=== PATIENT | male | born 1970 | race Caucasian/White ===

== ENCOUNTER 2019-04-03 12:42 | Emergency (ER) | payer BC ==
[~2019-04-03] VITALS: Ht 172.7 cm; Wt 105.0 kg
[2019-04-03 12:47] VITALS: BP 145/87; PULSE 96; RESP 18; Ht 172.7 cm; Wt 105.0 kg
--- NOTE | 2019-04-03 12:56 | EN ---
Date/Time of Note Date/Time of Note DATE: 04/03/19 TIME: 12:54 ER Progress Note 48-year-old male, right-handed, presents the emergency left elbow pain after sustaining a ground-level fall that occurred yesterday, landing on the left side of his body. Patient evaluated in the ED 3, order for x-rays and a sling were placed, patient okay to be seen in the ED 2. DAINA COTTO MD Apr 03, 2019 12:56
[2019-04-03] MEDS ORDERED: KETOROLAC 30 MG INJ IM STA (13:19)
[2019-04-03] MEDS ORDERED: HYDROCODONE/APAP (5/325) TAB PO ONE (14:00)
[2019-04-03] MEDS ORDERED: IBUP-1542 PO (14:31)
--- NOTE | 2019-04-03 14:35 | ERD ---
ER Documentation Chief Complaint Chief Complaint left arm s/p trip and fall yesterday, no ko HPI Patient is a 48-year-old male, [id number], presents to the ER for concerns of left elbow pain after a trip and fall injury. Patient states injury occurred yesterday when he tripped outside. Patient landed on left elbow. Patient is right-hand dominant. ROS All systems reviewed and are negative except as per history of present illness. Medications Home Meds Active Scripts Ibuprofen* (Motrin*) 600 Mg Tab, 600 MG PO Q6, #30 TAB Prov:NICOLE ROSE PA-C 04/03/19 Allergies Allergies: Coded Allergies: No Known Allergy (Unverified , 04/03/19) PMhx/Soc Medical and Surgical Hx: pt denies Medical Hx, pt denies Surgical Hx Hx Alcohol Use: Yes (social) Hx Substance Use: No Hx Tobacco Use: Yes Smoking Status: Current every day smoker FmHx Family History: No diabetes Physical Exam Vitals Vital Signs Date Temp Pulse Resp B/P (MAP) Pulse Ox O2 O2 Flow FiO2 Time Delivery Rate 04/03/19 97.4 96 18 145/87 98 12:47 (106) Physical Exam GENERAL: Well-developed, well-nourished male. Appears in no acute distress. HEAD: Normocephalic, atraumatic. EYES: Pupils are equally reactive bilaterally. EOMs grossly intact. No conjunctival erythema. NECK: Supple. No meningismus. Normal range of motion of the neck. LUNG: Clear to auscultation bilaterally. No rhonchi, wheezing, rales or coarse breath sounds. HEART: Regular rate and rhythm. No murmurs, rubs or gallops. EXTREMITIES: Equal pulses bilaterally. No peripheral clubbing, cyanosis or edema. No unilateral leg swelling. NEUROLOGIC: Alert and oriented. Moving all four extremities without any difficulty. Normal speech. Steady gait. SKIN: Normal color. Warm and dry. No rashes or lesions. LUE: No deformity, erythema, ecchymosis. Swelling noted throughout the elbow joint. Decreased range of motion secondary to pain. Tender to palpation over the radial head. Sensation intact to light touch. Neurovascularly intact. (Able to give thumbs up, make an ok sign, cross digits 2 and 3, thumb to pinky opposition. 2+ RP.) No snuffbox tenderness. Results 24 hrs Current Medications Medications Dose Sig/Mayra Start Time Status Last (Trade) Ordered Route PRN Stop Time Admin Dose Reason Admin Ketorolac 30 mg ONCE STAT 04/03/19 DC 04/03/19 Tromethamine IM 13:19 13:27 (Toradol) 04/03/19 13:20 1 tab ONCE ONCE 04/03/19 DC 04/03/19 Acetaminophen PO 14:00 13:59 / 04/03/19 14:01 Hydrocodone Bitart (Orion (5/325)) Procedures/MDM ED COURSE: The patient was stable throughout ED course. I kept the patient and/or family informed of laboratory and diagnostic imaging results throughout the ED course. \ DIAGNOSTIC IMAGING: Read by radiologist. Patient: SIMONE ZAVALA : 1970 Age: 48 Sex: M MR #: [id number] DOS: 04/03/19 1251 Ordering MD: DAINA COTTO MD Location: [facility] Room/Bed: PROCEDURE: XR Elbow. CLINICAL INDICATION: Pain TECHNIQUE: AP, lateral and oblique views of the left elbow performed. COMPARISON: None. FINDINGS: There is normal mineralization and alignment. There is a large left elbow joint effusion. There is a nondisplaced fracture of the left radial head. There is no significant joint space narrowing. The soft tissues are unremarkable. RPTAT: AA IMPRESSION: Nondisplaced fracture of the left radial head with associated left elbow joint effusion. .Aaron Barksdale MD, MD Date Time Electronically viewed and signed by .Aaron Barksdale MD, on 04/03/2019 14:04 .S/ CC: DAINA COTTO MD [id number] PROCEDURES: SPLINT APPLICATION: The patient was verbally consented at bedside prior to splint application. Patient was explained the risks, benefits and alternatives to this procedure. The patient was neurovascularly intact prior to and status post application of the splint. The patient tolerated the procedure well with no complications. Splint type: long arm splint and sling Extremity: left Indication: Nondisplaced fracture of the left radial head with associated left elbow joint effusion MEDICATIONS GIVEN: Toradol, Orion MEDICAL DECISION MAKING: This is a 48-year-old male who presents with left elbow pain. Vital signs were reviewed. Patient was afebrile. Elbow XR showed findings of the radial head fracture with joint effusion. Patient was placed in a long-arm splint and advised to follow-up with an disease education specialist. Patient advised to remain in splint until seen and rigo red by disease education specialist. Low suspicion for septic joint, lateral epicondylitis, medial epicondylitis, olecranon bursitis, biceps tendon rupture, osteomyelitis, rheumatoid arthritis, osteoarthritis or compartment syndrome. PRESCRIPTIONS: Ibuprofen DISCHARGE: At this time, patient is stable for discharge and outpatient management.I have instructed the patient to follow-up with his/her primary care physician in 1-2 days. I have discussed with the patient the possibility of needing to see an disease education specialist for further workup and imaging if the pain persists. I have instructed the patient to promptly return to the ER for any new or worsening symptoms including increased pain, swelling, redness, warmth or fever. The patient and/or family expressed understanding of and agreement with this plan. All questions were answered. Home care instructions were provided. Disclaimer: Inadvertent spelling and grammatical errors are likely due to EHR/dictation software use and do not reflect on the overall quality of patient care. Also, please note that the electronic time recorded on this note does not necessarily reflect the actual time of the patient encounter. Departure Diagnosis: Primary Impression: Left radial head fracture Encounter type: initial encounter Fracture type: closed Fracture alignment: nondisplaced Qualified Codes: S52.125A - Nondisplaced fracture of head of left radius, initial encounter for closed fracture Condition: Fair Patient Instructions: Radial Head Fracture Referrals: COMMUNITY CLINICS YOU HAVE RECEIVED A MEDICAL SCREENING EXAM AND THE RESULTS INDICATE THAT YOU DO NOT HAVE A CONDITION THAT REQUIRES URGENT TREATMENT IN THE EMERGENCY DEPARTMENT. FURTHER EVALUATION AND TREATMENT OF YOUR CONDITION CAN WAIT UNTIL YOU ARE SEEN IN YOUR DOCTORS OFFICE WITHIN THE NEXT 1-2 DAYS. IT IS YOUR RESPONSIBILITY TO MAKE AN APPOINTMENT FOR FOLOW-UP CARE. IF YOU HAVE A PRIMARY DOCTOR --you should call your primary doctor and schedule an appointment IF YOU DO NOT HAVE A PRIMARY DOCTOR YOU CAN CALL OUR PHYSICIAN REFERRAL HOTLINE AT IF YOU CAN NOT AFFORD TO SEE A PHYSICIAN YOU CAN CHOSE FROM THE FOLLOWING [facility] [address] [facility] [place] [address] [facility] [address] [facility] [address] [facility] [address] [facility]. [facility] [address] [facility]. [facility] YOU HAVE RECEIVED A MEDICAL SCREENING EXAM AND THE RESULTS INDICATE THAT YOU DO NOT HAVE A CONDITION THAT REQUIRES URGENT TREATMENT IN THE EMERGENCY DEPARTMENT. FURTHER EVALUATION AND TREATMENT OF YOUR CONDITION CAN WAIT UNTIL YOU ARE SEEN IN YOUR DOCTORS OFFICE WITHIN THE NEXT 1-2 DAYS. IT IS YOUR RESPONSIBILITY TO MAKE AN APPOINTMENT FOR FOLOW-UP CARE. IF YOU HAVE A PRIMARY DOCTOR --you should call your primary doctor and schedule and appointment IF YOU DO NOT HAVE A PRIMARY DOCTOR YOU CAN CALL OUR PHYSICIAN REFERRAL HOTLINE AT . IF YOU CAN NOT AFFORD TO SEE A PHYSICIAN YOU CAN CHOSE FROM THE FOLLOWING [facility]: [facility] [address] [place] [address] [facility] [address] [place] [address] [facility] [address] [place] [address] Additional Instructions: Remain in splint until seen and cleared by disease education specialist. Call your primary care doctor TOMORROW for an appointment during the next 1-2 days.See the doctor sooner or return here if your condition worsens before your appointment time. NICOLE ROSE PA-C Apr 03, 2019 14:35
== END 2019-04-03 15:00 | disposition home or self-care (01) ==
LOC: FTE 12:42
DX: S52.125A Nondisplaced fracture of head of left radius, initial encounter for closed fracture (principal); F17.210 Nicotine dependence, cigarettes, uncomplicated; W01.0XXA Fall on same level from slipping, tripping and stumbling without subsequent striking against object, initial encounter; Y92.9 Unspecified place or not applicable
CPT/HCPCS: 29105; 73080; 96372; J1885; Z7502; Z7610